=== PATIENT | male | born 1980 | race Caucasian/White ===

== ENCOUNTER 2021-01-20 01:31 | Emergency (ER) | payer SELFPAY ==
[~2021-01-20] VITALS: Ht 170.2 cm; Wt 70.0 kg
[2021-01-20] MEDS ORDERED: TOPUD MT (02:44)
[2021-01-20] MEDS ORDERED: ACETAMINOPHEN 500MG TABLET PO ONE (02:45)
[2021-01-20 04:00] VITALS: BP 122/61
== END 2021-01-20 04:00 | disposition home or self-care (01) ==
LOC: ER 01:31
DX: U07.1 COVID-19 (principal); R07.89 Other chest pain
CPT/HCPCS: 93005; 99284; C9803; U0003; U0005

== ENCOUNTER 2021-02-12 08:49 | Emergency (ER) | payer OTHER, SELFPAY ==
[~2021-02-12] VITALS: Ht 162.6 cm; Wt 55.0 kg
[~2021-02-12 08:49] MED LIST: TOPUD MT
[2021-02-12 10:25] VITALS: BP 117/84
[2021-02-12] MEDS ORDERED: AMOXICILLIN/POTASSIUM CLAVULANATE 875/125MG TAB PO ONE (12:45)
[2021-02-12] MEDS ORDERED: ACETAMINOPHEN 325MG TABLET PO ONE (13:00)
[2021-02-12] MEDS ORDERED: PENI500T MT (16:16)
== END 2021-02-12 16:58 | disposition home or self-care (01) ==
LOC: ER 08:49
DX: J02.9 Acute pharyngitis, unspecified (principal); R13.10 Dysphagia, unspecified
CPT/HCPCS: 87070; 87430; 87804; 99283